=== PATIENT | male | born 1960 | race Caucasian/White ===

== ENCOUNTER 2017-08-20 09:10 | Emergency (ER) | payer BC, SELFPAY ==
[2017-08-20 09:57] VITALS: BP 138/79; PULSE 69; RESP 20; TEMP 36.7; O2SAT 96; BMI 69.3
--- NOTE | 2017-08-20 10:03 | XR_ITS ---
XR chest 2V HISTORY: ITS.REASON: CHEST PAIN ORDERING PHYSICIAN: Lupe Helm PATIENT AGE: 56 years COMPARISON: 12/22/2016 FINDINGS: Normal heart size. There is some prominence of the right hilum possibly related to overlying ectasia of the aorta. Hilar adenopathy is also a consideration.. The lungs are clear without infiltrates, suspicious nodules, or pleural effusions. No acute bony abnormalities. IMPRESSION: Mild prominence of the mediastinum/hilum on the right posterolateral related to tortuous/ectatic ascending aorta versus adenopathy. Consider chest CT for further evaluation
[2017-08-20 10:21] LABS: Microscopic, Urine URINE MICROSCOPIC (MICROSCOPIC)
[2017-08-20 10:24] LABS: Basophils # 0.1 K/mm3 (0-0.2); Basophils % 0.6 % (0.1-2.0); Eosinophils # 0.2 K/mm3 (0.0-0.4); Eosinophils % 2.2 % (0.1-12.0); Hematocrit 46.1 % (42.0-52.0); Hemoglobin 15.7 g/dL (14.1-18.0); Lymphocytes # 2.1 K/mm3 (0.7-4.5); Lymphocytes % 25.3 K/mm3 (10-50); Mean Corpuscular HGB Conc 33.9 g/dL (31.8-35.4); Mean Corpuscular Hemoglobin 30.7 pg (27.0-31.2); Mean Corpuscular Volume 90.4 fl (80-94); Mean Platelet Volume 8.3 fl (7.4-10.4); Monocytes # 0.6 K/mm3 (0.1-1.0); Monocytes % 6.8 % (1.7-9.3); Neutrophils # 5.4 K/mm3 (1.8-7.8); Neutrophils % 65.1 % (37.0-80.0); Platelet Count 174 K/mm3 (142-424); Red Blood Count 5.11 M/mm3 (4.60-6.20); Red Cell Distribution Width 13.1 % (11.5-17.5); White Blood Count 8.3 K/mm3 (4.8-10.8)
[2017-08-20 10:25] LABS: Appearance,Urine CLEAR (Clear); Bilirubin,Urine Negative (Negative); Blood, Urine 2+ (Negative); Color,Urine YELLOW (Yellow); Glucose,Urine (UA) Negative (Negative); Ketones,Urine Negative (Negative); Leukocyte Esterase,Urine Negative (Negative); Nitrate,Urine Negative (Negative); Protein,Urine Negative (Negative); Specific Gravity, Urine <= 1.005 (1.005-1.030); Urobilinogen,Urine 0.2 EU/dl (0.2)
[2017-08-20 10:29] LABS: Lipase 245 u/L (73-393)
[2017-08-20 10:36] LABS: Bacteria,Urine Trace /lpf; Squamous Epithelial Cell,Urine Occasional #/hpf (0-5); WBC,Urine Occasional #/hpf (0-3)
[2017-08-20 10:47] LABS: Alanine Aminotransferase 31 U/L (12-78); Albumin Level 3.7 gm/dL (3.4-5.0); Albumin/Globulin Ratio 1.1 (1.1-1.8); Alkaline Phosphatase 79 U/L (46-116); Amylase 67 U/L (25-125); Anion Gap 9.1 mEq/L (5-15); Aspartate Amino Transferase 11 U/L (15-37); Bilirubin,Total 0.3 mg/dL (0.2-1.0); Blood Urea Nitrogen 16 mg/dL (7-18); CKMB Relative Index 0.9 U/L (0-4.0); Calcium 9.1 mg/dL (8.5-10.1); Carbon Dioxide 27 mmol/L (21.0-32.0); Chloride 106 mmol/L (98-107); Creatine Kinase 89 U/L (39-308); Creatine Kinase MB 0.8 mg/ml (0.0-3.6); Creatinine Clearance Estimated 70 mL/min (0-300); Creatinine,Serum 1.06 mg/dL (0.70-1.30); Estimated Glomerular Filt Rate 72 ml/min (>60); GFR (African American) 87 ML/MIN (>60); Globulin 3.3 gm/dl (1.3-3.2); Glucose 102 mg/dL (74-106); Potassium 4.1 mmoL/L (3.5-5.1); Sodium 138 mmol/L (136-145); Troponin I < 0.02 ng/ml (0.00-0.06)
--- NOTE | 2017-08-20 11:54 | HMH.EDABDPAI ---
ED Disposition Clinical Impression: Acid reflux Qualifiers: Esophagitis presence: with esophagitis Qualified Code(s): K21.0 - Gastro-esophageal reflux disease with esophagitis Chest pain Qualifiers: Chest pain type: unspecified Qualified Code(s): R07.9 - Chest pain, unspecified Disposition: Home, Self-Care Condition on Discharge: Fair Instructions: DI for Acute Abdomen Additional Instructions: Alternate Maalox and Mylanta every 4 hours for GI upset Prescriptions: Pantoprazole Sodium [Protonix 40mg tablet] 40 mg PO DAILY 30 Days #30 tab Referrals: Provider,Referral, MD [Primary Care Provider] - Time of Disposition: 12:19 - Critical Care Critical Care Time: No Attestation: On 08/20/17, the high probability of a clinically significant, sudden or life threatening deterioration of the following system(s) required my full and direct attention, intervention and personal management. The time I documented below is in addition to time spent performing reported procedures but includes the following listed in this critical care notation. Medical Decision Making Vital Signs: 08/20/17 09:57 Temperature 98.1 F Temperature Source Oral Pulse Rate [Right Radial] 69 Respiratory Rate 20 Blood Pressure [Right Arm] 138/79 Blood Pressure Mean [Right Arm] 98 02 Sat by Pulse Oximetry 96 Oxygen Delivery Method Room Air - Lab Data Lab Results 08/20/17 10:15: Urine Color Yellow, Urine Appearance Clear, Urine pH 6.0, Ur Specific [place] <= 1.005, Urine Protein Negative, Urine Glucose (UA) Negative, Urine Ketones Negative, Urine Blood 2+, Urine Nitrate Negative, Urine Bilirubin Negative, Urine Urobilinogen 0.2, Ur Leukocyte Esterase Negative, Urine WBC Occasional, Ur Squamous Epith Cells Occasional, Urine Bacteria Trace 08/20/17 10:18: WBC 8.3, RBC 5.11, Hgb 15.7, Hct 46.1, MCV 90.4, MCH 30.7, MCHC 33.9, RDW 13.1, Plt Count 174, MPV 8.3, Neut % (Auto) 65.1, Lymph % (Auto) 25.3, [place] % (Auto) 6.8, Eos % (Auto) 2.2, Baso % (Auto) 0.6, Neut # (Auto) 5.4, Lymph # (Auto) 2.1, [place] # (Auto) 0.6, Eos # (Auto) 0.2, Baso # (Auto) 0.1 08/20/17 10:18: Sodium 138, Potassium 4.1, Chloride 106, Carbon Dioxide 27, Anion Gap 9.1, BUN 16, Creatinine 1.06, Estimated Creat Clear 70, Estimated GFR 72, Est GFR ( Amer) 87, Glucose 102, Calcium 9.1, Total Bilirubin 0.3, AST 11 L, ALT 31, Alkaline Phosphatase 79, Total Creatine Kinase 89, CK-MB (CK-2) 0.8, CK-MB (CK-2) Rel Index 0.9, Troponin I < 0.02, Total Protein 7.0, Albumin 3.7, Globulin 3.3 H, Albumin/Globulin Ratio 1.1, Amylase 67 08/20/17 10:18: Lipase 245 Result diagrams: 08/20/17 10:18 08/20/17 10:18 Orders (Tests/Meds): ORDERS Category Date Time Status XR chest 2V Stat Exams 08/20/17 10:03 Taken - Radiology Data #1 Image(s): Chest Image Reviewed: Yes I reviewed the patient's radiology image Preliminary Findings: Normal/NAD - Shayan Inquiry Pt receiving controlled substance: No Shayan was queried for this patient: No Abdominal Pain HPI - General Chief Complaint: Abdominal Pain Stated Complaint: cough,wants B/P checked,dizziness Time Seen by Provider: 08/20/17 11:55 Mode of Arrival: Ambulatory Limitations: No Limitations Description of Symptoms (Recalled from ER Triage Doc. by RN): PT C/O GENERALIZED WEAKNESS AND FATIGUE. C/O ABDOMINAL SWELLING, CHEST AND JAW PAINS - History of Present Illness HPI narrative: Woke up this morning with stomach upset and swelling but no vomiting or diarrhea. Has history of acid reflux and takes Zantac. Feelign really tired and had heart cath last summer with 50% and 2 10 % blockages..denies chest pain...just feels tired all the time MD complaint: abdominal pain, other (chest pain) Onset (ago): day(s) Consistency: intermittent Location: epigastric Severity: mild - Related Data Previous Rx's Medication Instructions Recorded Pantoprazole Sodium [Protonix 40mg 40 mg PO DAILY 30 Days #30 tab 08/20/17 ta
--- NOTE | 2017-08-20 12:02 | ED_ITS ---
ED Disposition Clinical Impression: Acid reflux Qualifiers: Esophagitis presence: with esophagitis Qualified Code(s): K21.0 - Gastro- esophageal reflux disease with esophagitis Chest pain Qualifiers: Chest pain type: unspecified Qualified Code(s): R07.9 - Chest pain, unspecified Disposition: Home, Self-Care Condition on Discharge: Fair Instructions: DI for Acute Abdomen Additional Instructions: Alternate Maalox and Mylanta every 4 hours for GI upset Prescriptions: Pantoprazole Sodium [Protonix 40mg tablet] 40 mg PO DAILY 30 Days #30 tab Referrals: Provider,Referral, MD [Primary Care Provider] - Time of Disposition: 12:19 - Critical Care Critical Care Time: No Attestation: On 08/20/17, the high probability of a clinically significant, sudden or life threatening deterioration of the following system(s) required my full and direct attention, intervention and personal management. The time I documented below is in addition to time spent performing reported procedures but includes the following listed in this critical care notation. Medical Decision Making Vital Signs: 08/20/17 09:57 Temperature 98.1 F Temperature Source Oral Pulse Rate [Right Radial] 69 Respiratory Rate 20 Blood Pressure [Right Arm] 138/79 Blood Pressure Mean [Right Arm] 98 02 Sat by Pulse Oximetry 96 Oxygen Delivery Method Room Air - Lab Data Lab Results 08/20/17 10:15: Urine Color Yellow, Urine Appearance Clear, Urine pH 6.0, Ur Specific [place] <= 1.005, Urine Protein Negative, Urine Glucose (UA) Negative, Urine Ketones Negative, Urine Blood 2+, Urine Nitrate Negative, Urine Bilirubin Negative, Urine Urobilinogen 0.2, Ur Leukocyte Esterase Negative, Urine WBC Occasional, Ur Squamous Epith Cells Occasional, Urine Bacteria Trace 08/20/17 10:18: WBC 8.3, RBC 5.11, Hgb 15.7, Hct 46.1, MCV 90.4, MCH 30.7, MCHC 33.9, RDW 13.1, Plt Count 174, MPV 8.3, Neut % (Auto) 65.1, Lymph % (Auto) 25.3 , [place] % (Auto) 6.8, Eos % (Auto) 2.2, Baso % (Auto) 0.6, Neut # (Auto) 5.4, Lymph # (Auto) 2.1, [place] # (Auto) 0.6, Eos # (Auto) 0.2, Baso # (Auto) 0.1 08/20/17 10:18: Sodium 138, Potassium 4.1, Chloride 106, Carbon Dioxide 27, Anion Gap 9.1, BUN 16, Creatinine 1.06, Estimated Creat Clear 70, Estimated GFR 72, Est GFR ( Amer) 87, Glucose 102, Calcium 9.1, Total Bilirubin 0.3, AST 11 L, ALT 31, Alkaline Phosphatase 79, Total Creatine Kinase 89, CK-MB (CK-2 ) 0.8, CK-MB (CK-2) Rel Index 0.9, Troponin I < 0.02, Total Protein 7.0, Albumin 3.7, Globulin 3.3 H, Albumin/Globulin Ratio 1.1, Amylase 67 08/20/17 10:18: Lipase 245 Result diagrams: 08/20/17 10:18 08/20/17 10:18 Orders (Tests/Meds): ORDERS Category Date Time Status XR chest 2V Stat Exams 08/20/17 10:03 Taken - Radiology Data #1 Image(s): Chest Image Reviewed: Yes I reviewed the patient's radiology image Preliminary Findings: Normal/NAD - Shayan Inquiry Pt receiving controlled substance: No Shayan was queried for this patient: No Abdominal Pain HPI - General Chief Complaint: Abdominal Pain Stated Complaint: cough,wants B/P checked,dizziness Time Seen by Provider: 08/20/17 11:55 Mode of Arrival: Ambulatory Limitations: No Limitations Description of Symptoms (Recalled from ER Triage Doc. by RN): PT C/O GENERALIZED WEAKNESS AND FATIGUE. C/O ABDOMINAL SWELLING, CHEST AND JAW PAINS - History of Present Illness HPI narrative: Woke up t
[2017-08-20 12:30] VITALS: BP 130/82; PULSE 69; RESP 18; TEMP 36.6; O2SAT 100
== END 2017-08-20 12:33 | disposition home or self-care (01) ==
LOC: UTC 09:15 → ER 09:52
PROVIDERS: General Practice; Emergency Provider Nurse Practitioner; Family Provider Internal Medicine Adolescent Medicine
DX: K21.0 Gastro-esophageal reflux disease with esophagitis (principal); R07.9 Chest pain, unspecified; Z88.8 Allergy status to other drugs, medicaments and biological substances
CPT/HCPCS: 71046; 80053; 81001; 82150; 82550; 82553; 83690; 84484; 85025; 93005; 99283

== ENCOUNTER 2022-02-27 16:51 | Emergency (ER) | payer BC, SELFPAY ==
[2022-02-27 17:17] VITALS: BP 132/66; PULSE 92; RESP 16; TEMP 36.8; O2SAT 96; BMI 27.4
[2022-02-27 17:40] VITALS: BP 116/72; PULSE 93; O2SAT 96
[2022-02-27 18:03] VITALS: BP 106/75; PULSE 92; O2SAT 95
--- NOTE | 2022-02-27 18:20 | XR_ITS ---
PROCEDURE INFORMATION: Exam: XR Left Femur Exam date and time: 02/27/22 06:20 PM Age: 61 years old Clinical indication: Injury or trauma; Other: Cut with chainsaw; Wound; Thigh or upper leg; Left; Foreign body involvement not specified; Additional info: Chainsaw accident, RO fb TECHNIQUE: Imaging protocol: Radiologic exam of the Left femur. Views: 2 views. COMPARISON: No relevant prior studies available. FINDINGS: Bones/joints: Unremarkable. No acute fracture. Soft tissues: Large soft tissue laceration without foreign body. IMPRESSION: Large soft tissue laceration without foreign body.
--- NOTE | 2022-02-27 18:22 | [facility]H.EDGENADL ---
Discharge Plan Disposition Patient Disposition: Home, Self-Care Condition: Good Chief Complaint: Wound/Laceration Prescriptions Prescriptions: New cefadroxil 500 mg capsule 500 mg PO BID 7 Days Qty: 14 0RF No Action pantoprazole 40 MG tablet,delayed release (DR/EC) 40 mg PO DAILY 30 Days Qty: 30 0RF Referrals Follow up/Referrals: Rahel Briggs APRN [Primary Care Provider] - See instructions Activity Restrictions/Add. Instructions Additional Instructions/Restrictions: Follow-up in 10 days to have your stitches removed. Run hot soapy water over your laceration, but do not scrub the stitches as they will come undone. If you have signs or symptoms of infection, any other concerning symptoms, return to the emergency department. Cefadroxil twice daily for 7 days to prevent infection. Clinical Impressions Clinical Impression: Laceration Instructions Patient Instructions: DI for Laceration Repair Discharge ED Provider: Tyrone Bashir General Adult HPI General Chief complaint: Wound/Laceration Stated complaint: AO 02/27@1530@home lac on L leg fr chainsaw Time Seen by Provider: 02/27/22 17:44 Mode of Arrival: Wheelchair Source of Information: Patient Limitations: No Limitations Description of Symptoms (Recalled from ER Triage Doc. by RN): Pt has laceration to L upper thigh from a chain saw. Reports he was sawing on a poplar tree, chain saw kicked back and hit pt in the leg. No active bleeding noted during triage. Pt reports he is mainly concerned about getting a tetanus shot. History of Present Illness HPI narrative: 4 yearsThis is a 61-year-old male with no past medical history presenting with left thigh laceration. Patient states that he was using his chainsaw approximately 2 hours prior to arrival when he accidentally hit himself in the thigh. Bleeding is hemostatic with direct pressure. Last tetanus was. Patient denies any other trauma, or any other concerning symptoms. Related Data Previous Rx's Medication Instructions Recorded pantoprazole 40 mg tablet,delayed 40 mg PO DAILY 30 days #30 tabs 08/20/17 release cefadroxil 500 mg capsule 500 mg PO BID 7 days #14 caps 02/27/22 Allergies Allergy/AdvReac Type Severity Reaction Status Date / Time metoclopramide Allergy Unknown ANXIOUS,PAR Unverified 06/19/17 15:26 ANOID PFSH PFS Social History Smoking Status: Current some day smoker alcohol intake: never current occupational status: unemployed and previously employed ROS Obtained: Yes All systems reviewed & no additional complaints except as documented Physical Exam General General appearance: alert and in no apparent distress Head Head exam: atraumatic, normocephalic and normal inspection Eye Eye exam: Present normal appearance, PERRL and EOMI ENT ENT exam: Present normal exam, normal oropharynx, mucous membranes moist, TM's normal bilaterally and normal external ear exam Neck Neck exam: Present normal inspection, full ROM and trachea midline; Absent meningismus or lymphadenopathy Chest Chest inspection: Present normal inspection and symmetric chest wall rise; Absent tenderness Respiratory Respiratory exam: Present normal lung sounds bilaterally; Absent respiratory distress Cardiovascular Cardiovascular exam: Present regular rate and normal rhythm; Absent JVD Abdominal Exam Abdominal exam: Present soft and normal bowel sounds; Absent distention, tenderness or guarding Extremities Exam Extremities exam: Present normal inspection, full ROM and normal capillary refill; Absent calf tenderness Expanded Lower Extremity Exam Left: Upper leg exam: Present laceration (2 cm, hemostatic, no evidence of gross contamination) Leg image: 1. Back Exam Back exam: Present normal inspection; Absent tenderness Neurological Exam Neurological exam: Present alert and oriented X3 Psychiatric Psychiatric exam: Present normal affect and normal mood Skin Skin exam: Prese
--- NOTE | 2022-02-27 19:08 | PC.NURSE ---
HARINDER FLORES at suturing
[2022-02-27 19:35] VITALS: BP 105/71; PULSE 91; RESP 16; TEMP 36.8; O2SAT 95
== END 2022-02-27 19:37 | disposition home or self-care (01) ==
PROVIDERS: Emergency Provider Emergency Medicine; PCP Nurse Practitioner Family
DX: S71.112A Laceration without foreign body, left thigh, initial encounter (principal); W29.3XXA Contact with powered garden and outdoor hand tools and machinery, initial encounter
CPT/HCPCS: 12001; 73552; 90471; 90715; 99282